=== PATIENT | male | born 1980 | race Caucasian/White ===

== ENCOUNTER 2017-01-31 10:13 | Emergency (ER) | payer OTHER ==
[~2017-01-31] VITALS: Ht 188 cm; Wt 90.7 kg
[2017-01-31 10:15] VITALS: BP 137/79
[2017-01-31] MEDS ORDERED: ALEV220T26 PO (10:25)
[2017-01-31] MEDS ORDERED: ZOLO50TA PO (10:25)
[2017-01-31] MEDS ORDERED: PRED10TA PO (10:58)
[2017-01-31] MEDS ORDERED: predniSONE 20 MG TAB PO ONE (11:00)
== END 2017-01-31 11:05 | disposition home or self-care (01) ==
LOC: M ED 10:50
DX: T78.40XA Allergy, unspecified, initial encounter (principal); T78.3XXA Angioneurotic edema, initial encounter